=== PATIENT | female | born 1945 | race Caucasian/White ===

== ENCOUNTER 2018-04-10 05:52 | Inpatient (IN) | payer BC, MEDICARE, OTHER ==
[~2018-04-10] VITALS: Ht 165.1 cm; Wt 75.5 kg
[~2018-04-10 05:52] MED LIST: LEVO100T5 PO; LISI-170 PO
[2018-04-10] MEDS ORDERED: LACTATED RINGERS 1,000 ML IV SCH (06:39)
[2018-04-10] MEDS ORDERED: LIDOCAINE/PF 0.5% ,50ML ONE (06:44)
[2018-04-10] MEDS ORDERED: BUPIVACAINE/PF 0.25% ONE (06:44)
[2018-04-10] MEDS ORDERED: THROMBIN 5,000 UNIT VIAL TP ONE (06:45)
[2018-04-10] MEDS ORDERED: EPINEPHRINE 1 MG/ML, 1ML ONE (06:45)
[2018-04-10] MEDS ORDERED: VANCOMYCIN 1,000 MG ONE (06:45)
[2018-04-10] MEDS ORDERED: LIDOCAINE-MPF 1%, 2ML INFIL ONE (07:00)
[2018-04-10] MEDS ORDERED: CHOL20002 PO (07:05)
[2018-04-10] MEDS ORDERED: VENL37.58 PO (07:05)
[2018-04-10] MEDS ORDERED: DEXAMETHASONE 4 MG/ML, 1ML ONE ×2 (07:33→07:34)
[2018-04-10] MEDS ORDERED: METOCLOPRAMIDE 5 MG/ML, 2ML ONE ×2 (07:33→07:34)
[2018-04-10] MEDS ORDERED: PROPOFOL 10 MG/ML, 20ML ONE (07:33)
[2018-04-10] MEDS ORDERED: FENTANYL PF 100 MCG/2ML ONE ×3 (07:34→12:14)
[2018-04-10] MEDS ORDERED: ROCURONIUM 10MG/ML,5ML ONE ×2 (07:34→08:46)
[2018-04-10] MEDS ORDERED: MIDAZOLAM 1 MG/ML, 2ML ONE (07:34)
[2018-04-10] MEDS ORDERED: KETAMINE 10 MG/ML, 20ML ONE (07:34)
[2018-04-10] MEDS ORDERED: WATER-INJECTION,STERILE 10 ML IV ONE (07:35)
[2018-04-10] MEDS ORDERED: CEFAZOLIN 1,000 MG ONE (07:35)
[2018-04-10] MEDS ORDERED: EPHEDRINE 50 MG/ML, 1ML ONE (07:35)
[2018-04-10] MEDS ORDERED: PHENYLEPHRINE 10 MG/ML ONE (07:35)
[2018-04-10] MEDS ORDERED: SODIUM BICARBONATE 1 MEQ/ML, 50ML VIAL ONE (07:38)
[2018-04-10] MEDS ORDERED: SODIUM CHLORIDE 0.9% PF 10ML ONE (07:44)
[2018-04-10] MEDS ORDERED: GLYCOPYRROLATE 0.4 MG/2 ML, 2ML ONE (10:47)
[2018-04-10] MEDS ORDERED: MORPHINE SULFATE 4 MG/ML, 1ML IVPush PRN (12:00)
[2018-04-10] MEDS ORDERED: MEPERIDINE/PF 25MG/0.5ML IVPush PRN (12:00)
[2018-04-10] MEDS ORDERED: HYDROmorphone 1 MG/ML, 1ML IV PRN (12:00)
[2018-04-10] MEDS ORDERED: OXYcodone 5 MG/5 ML ORAL.SOL UDC PO PRN (12:00)
[2018-04-10] MEDS ORDERED: OXYcodone 5 MG/5 ML ORAL.SOL UDC ONE (12:14)
[2018-04-10] MEDS: FENTANYL PF 100 MCG/2ML IV PRN ×2 (12:20→12:29)
[2018-04-10 13:45] VITALS: BP 113/58
[2018-04-10] MEDS ORDERED: PROMETHAZINE 25 MG/ML, 1ML IM PRN (14:30)
[2018-04-10] MEDS ORDERED: BISACODYL 10 MG SUPP PR PRN (14:30)
[2018-04-10] MEDS ORDERED: HYDROcodone/APAP 5/325 TABLET PO PRN (14:30)
[2018-04-10] MEDS ORDERED: METHOCARBAMOL 1,000 MG in DEXTROSE 5% 100 ML IV ONE (14:30)
[2018-04-10] MEDS ORDERED: MORPHINE SULFATE 4 MG/ML, 1ML IV PRN (14:30)
[2018-04-10] MEDS ORDERED: LABETALOL 5MG/ML, 20ML IV PRN (14:30)
[2018-04-10] MEDS ORDERED: MAGNESIUM HYDROXIDE 8%, 30ML UDC PO PRN (14:30)
[2018-04-10] MEDS ORDERED: ONDANSETRON 2MG/ML, 2ML IV PRN (14:30)
[2018-04-10] MEDS: D5%-0.9% NACL+KCL 20MEQ 1,000 ML IV SCH (15:03)
[2018-04-10] MEDS: CEFAZOLIN PMX 2GM/50ML 50 ML IVPB SCH ×2 (15:55→23:19)
[2018-04-10] MEDS ORDERED: ONDANSETRON 4 MG TABLET ONE (17:09)
[2018-04-10] MEDS: HYDROcodone/APAP 10/325 MG TABLET PO PRN ×3 (17:48→23:48)
[2018-04-10 18:35] VITALS: BP 105/54
[2018-04-10 20:16] VITALS: BP 116/65
[2018-04-10] MEDS: METHOCARBAMOL 750 MG in DEXTROSE 5% 100 ML IV SCH (21:48)
[2018-04-11] VITALS (7 sets, daily range): BP systolic 90–135; BP diastolic 51–80
[2018-04-11] MEDS: D5%-0.9% NACL+KCL 20MEQ 1,000 ML IV SCH (01:10)
[2018-04-11] MEDS: HYDROcodone/APAP 10/325 MG TABLET PO PRN ×6 (04:32→22:56)
[2018-04-11 05:24] LABS: BASOPHILS # (AUTO) 0.02 x10^3/uL (0-0.1); BASOPHILS % (AUTO) 0 % (0-1); EOSINOPHILS % (AUTO) 0 % (1-7); LYMPHOCYTES # (AUTO) 1.47 x10^3/uL (1-3.4); LYMPHOCYTES % (AUTO) 11 % (22-44); MD NO; MEAN CORPUSCULAR HEMOGLOBIN 31.7 pg (27.0-34.8); MEAN CORPUSCULAR VOLUME 96.1 fL (80-100); MEAN PLATELET VOLUME 9.9 fL (7.4-10.4); MONOCYTES # (AUTO) 1.23 x10^3/uL (0.2-0.8); MONOCYTES % (AUTO) 10 % (2-9); NEUTROPHILS % (AUTO) 79 % (42-75); PLATELET COUNT 218 x10^3/uL (130-400); RED CELL DISTRIBUTION WIDTH 14.4 % (9.6-15.2)
[2018-04-11 05:32] LABS: ANION GAP 6 mmol/L (5-15); CALCIUM 7.5 mg/dL (8.5-10.1); CHLORIDE 113 mmol/L (98-107); CREATININE 0.87 mg/dL (0.55-1.02)
[2018-04-11] MEDS: LEVOTHYROXINE 100 MCG TABLET PO SCH (06:37)
[2018-04-11] MEDS: METHOCARBAMOL 750 MG in DEXTROSE 5% 100 ML IV SCH ×3 (06:38→21:13)
[2018-04-11] MEDS: CEFAZOLIN PMX 2GM/50ML 50 ML IVPB SCH ×3 (07:33→22:56)
[2018-04-11] MEDS: SENNA/DOCUSATE TABLET PO SCH (07:33)
[2018-04-11] MEDS: CHOLECALCIFEROL 1,000 UNIT TABLET PO SCH (07:33)
[2018-04-11] MEDS: VENLAFAXINE XR 37.5MG CAP.ER.24H PO SCH (07:33)
[2018-04-11] MEDS: LISINOPRIL 20 MG TABLET PO SCH (07:33)
[2018-04-11] MEDS: METOCLOPRAMIDE 10MG TABLET PO SCH ×3 (09:30→21:13)
[2018-04-11] MEDS ORDERED: D5%-0.9% NACL+KCL 20MEQ 1,000 ML IV SCH (09:30)
[2018-04-11] MEDS: MAGNESIUM HYDROXIDE 8%, 30ML UDC PO SCH (10:30)
[2018-04-12 02:22] VITALS: BP 104/59
[2018-04-12] MEDS: HYDROcodone/APAP 10/325 MG TABLET PO PRN ×2 (03:02→17:26)
[2018-04-12] MEDS: METOCLOPRAMIDE 10MG TABLET PO SCH (03:02)
[2018-04-12] MEDS: METHOCARBAMOL 750 MG in DEXTROSE 5% 100 ML IV SCH ×2 (05:47→15:00)
[2018-04-12] MEDS: LEVOTHYROXINE 100 MCG TABLET PO SCH (05:47)
[2018-04-12 06:05] LABS: BASOPHILS # (AUTO) 0.02 x10^3/uL (0-0.1); BASOPHILS % (AUTO) 0 % (0-1); EOSINOPHILS # (AUTO) 0.01 x10^3/uL (0-0.4); EOSINOPHILS % (AUTO) 0 % (1-7); LYMPHOCYTES # (AUTO) 1.26 x10^3/uL (1-3.4); LYMPHOCYTES % (AUTO) 12 % (22-44); MD NO; MEAN CORPUSCULAR HEMOGLOBIN 31.8 pg (27.0-34.8); MEAN CORPUSCULAR VOLUME 96.3 fL (80-100); MEAN PLATELET VOLUME 10.1 fL (7.4-10.4); MONOCYTES # (AUTO) 0.92 x10^3/uL (0.2-0.8); MONOCYTES % (AUTO) 9 % (2-9); NEUTROPHILS # (AUTO) 8.01 x10^3/uL (1.8-6.8); NEUTROPHILS % (AUTO) 78 % (42-75); PLATELET COUNT 188 x10^3/uL (130-400); RED BLOOD COUNT 3.45 x10^6/uL (3.82-5.3); RED CELL DISTRIBUTION WIDTH 14.5 % (9.6-15.2)
[2018-04-12 06:11] LABS: CHLORIDE 108 mmol/L (98-107)
[2018-04-12 06:21] LABS: ANION GAP 8 mmol/L (5-15); CREATININE 0.82 mg/dL (0.55-1.02)
[2018-04-12 07:02] VITALS: BP 94/56
[2018-04-12] MEDS: CEFAZOLIN PMX 2GM/50ML 50 ML IVPB SCH ×3 (07:46→23:15)
[2018-04-12] MEDS: CHOLECALCIFEROL 1,000 UNIT TABLET PO SCH (07:49)
[2018-04-12] MEDS: SENNA/DOCUSATE TABLET PO SCH (07:49)
[2018-04-12] MEDS: VENLAFAXINE XR 37.5MG CAP.ER.24H PO SCH (07:49)
[2018-04-12] MEDS: LISINOPRIL 20 MG TABLET PO SCH (07:50)
[2018-04-12] MEDS: MAGNESIUM HYDROXIDE 8%, 30ML UDC PO SCH (07:51)
[2018-04-12] MEDS ORDERED: ONDANSETRON 4 MG TABLET ONE (09:48)
[2018-04-12] MEDS ORDERED: ONDANSETRON ODT 4 MG PO PRN (10:00)
[2018-04-12] MEDS ORDERED: HYDR-3307 PO (11:04)
[2018-04-12] MEDS ORDERED: METH750T87 PO (11:05)
[2018-04-12] MEDS ORDERED: CEPH-368 PO (11:05)
[2018-04-12 14:03] VITALS: BP 112/62
[2018-04-12 20:00] VITALS: BP 111/71
[2018-04-12] MEDS: METHOCARBAMOL 750 MG TABLET PO SCH (22:45)
[2018-04-13] MEDS: HYDROcodone/APAP 10/325 MG TABLET PO PRN ×2 (01:56→11:42)
[2018-04-13 02:00] VITALS: BP 123/77
[2018-04-13] MEDS: METHOCARBAMOL 750 MG TABLET PO SCH (06:10)
[2018-04-13] MEDS: LEVOTHYROXINE 100 MCG TABLET PO SCH (06:10)
[2018-04-13] MEDS: CEFAZOLIN PMX 2GM/50ML 50 ML IVPB SCH (07:53)
[2018-04-13 08:00] VITALS: BP 128/81
[2018-04-13] MEDS: LISINOPRIL 20 MG TABLET PO SCH (08:29)
[2018-04-13] MEDS: SENNA/DOCUSATE TABLET PO SCH (08:34)
[2018-04-13] MEDS: VENLAFAXINE XR 37.5MG CAP.ER.24H PO SCH (08:34)
[2018-04-13] MEDS: CHOLECALCIFEROL 1,000 UNIT TABLET PO SCH (08:34)
[2018-04-13] MEDS: MAGNESIUM HYDROXIDE 8%, 30ML UDC PO SCH (08:34)
[2018-04-13 10:54] VITALS: BP 124/79
== END 2018-04-13 12:35 | disposition home or self-care (01) | DRG 460 ==
LOC: ORIP 05:52 → 4NOR 13:44 → DCLOUNGE 04-13 12:21
PROVIDERS: ADMIT Orthopaedic Surgery Orthopaedic Surgery of the Spine; ATTEND Orthopaedic Surgery Orthopaedic Surgery of the Spine
PROC: 0SG00AJ Fusion of Lumbar Vertebral Joint with Interbody Fusion Device, Posterior Approach, Anterior Column, Open Approach (ICD-10-PCS; 2018-04-10)
PROC: 0QB00ZZ Excision of Lumbar Vertebra, Open Approach (ICD-10-PCS; 2018-04-10)
PROC: 01NB0ZZ Release Lumbar Nerve, Open Approach (ICD-10-PCS; principal; 2018-04-10 07:30)
DX: M43.16 Spondylolisthesis, lumbar region (principal); M48.061 Spinal stenosis, lumbar region without neurogenic claudication
CPT/HCPCS: 36415; 72100; 80048; 85025; C1713; J0171; J0690; J1100; J2001; J2250; J2270; J2405; J2704; J3010; J3370; J3490; Q0162; C1762; J2370; J2765; J2800; J3480; J7120